=== PATIENT | male | born 1935 | race Caucasian/White ===

== ENCOUNTER → 2016-09-09 | Outpatient (CLI) | payer MEDICARE, OTHER ==
[~2016-09-09] MED LIST: ASA325 MG PO; ASCORBIC ACID500 MG PO; ASMANEX1 INH IH; CENTRUM SILVER1 EAC1 PO; FEOSOL-DPS325 MG PO; FLOMAX DPS0.4 MG PO; FLONASE 0.05% D16 GM NS; GARLIC1 EAC1 PO; GAVISCON DPS1 TAB PO; MACROBID100 MG PO; MOVE FREE JOIN1 EACH PO; NEURONTIN DPS600 MG PO; OMEGA-3 ACID ETH1 GM PO; ORGAN-I NR200 MG PO; OSTEO BI-FLEX1 EAC1 PO; POTASSIUM GLU2.5 MEQ PO; PROSCAR DPS5 MG PO; SENOKOT-S TABL1 EACH PO; SPIRIVA18 MCG PO; SPORTS CREAM85 GM TP; SUPER ENZYME C1 EACH PO; TYLENOL DPS325 MG PO; TYLENOL EXTRA500 M1 PO; ULTRAM DPS50 MG PO; VITAMIN D1000 UNI1 PO; ZESTRIL DPS20 MG PO; ZYRTEC DPS10 MG PO
== END | disposition home or self-care (01) ==
LOC: RAD.S 16:00
DX: G54.1 Lumbosacral plexus disorders (principal); M43.17 Spondylolisthesis, lumbosacral region